=== PATIENT | female | born 1965 | race Caucasian/White ===

== ENCOUNTER → 2016-09-12 | Outpatient (CLI) | payer BC ==
--- NOTE | 2016-09-12 15:19 | REP ---
RIGHT HIP, TWO VIEWS: HISTORY: Pain. There is no acute fracture or dislocation. The joint space is normal in appearance. IMPRESSION: There is no acute fracture or dislocation.
== END ==
LOC: M CLY 14:02
PROVIDERS: ATTEND Nurse Practitioner
DX: M25.551 Pain in right hip (principal)

== ENCOUNTER → 2016-09-15 | Outpatient (CLI) | payer BC, OTHER ==
--- NOTE | 2016-09-15 12:41 | REPMRS ---
Patient History The patient states she had a clinical breast exam in 2016. No known family history of cancer. Digital Mammo Screening Bilat: September 15, 2016 - Exam #: [id number] Bilateral CC and MLO view(s) were taken. Technologist: Sheryl Roque Technologist Prior study comparison: September 08, 2015, bilateral digital mammo screening bilat performed at [facility]. October 14, 2012, bilateral digital mammo screening bilat performed at [facility]. October 11, 2011, bilateral digital mammo screening bilat performed at [facility]. FINDINGS: There are scattered fibroglandular densities. There has been no change in the appearance of the mammogram from the prior studies. There is a mild amount of scattered fibroglandular density which is fairly symmetric. There is no interval development of dominant mass, architectural distortion, or clustered microcalcification suggestive of malignancy. ASSESSMENT: BI-RADS/ACR category 1 mammogram. Negative. Recommendation Routine screening mammogram in 1 year (for women over age 40). This mammogram was interpreted with the aid of an FDA-approved computer-aided dectection system. Electronically Signed By: Shree Plummer MD 09/15/16 [id number]
== END ==
LOC: M RAD 10:10
PROVIDERS: ATTEND Obstetrics & Gynecology
DX: Z12.39 Encounter for other screening for malignant neoplasm of breast (principal)

== ENCOUNTER → 2016-10-24 | Outpatient (CLI) | payer BC ==
[~2016-10-24] MED LIST: CONRAY-43 43% 50ML VIAL (Q9960) As Ordered ONE; LIDOCAINE 1% MDV 20ML VIAL As Ordered ONE; methylPREDNISolone SUSP 40 MG/ML (DEPO-medrol) VIAL (J1030) As Ordered ONE
--- NOTE | 2016-10-24 17:43 | REP ---
RIGHT HIP INJECTION: The procedure was performed under the direct supervision of Dr. Granda. The benefits and risks including, but not limited to pain, infection, bleeding, and anaphylaxis were explained to the patient and informed consent was obtained. The right femoral neck was localized using fluoroscopic guidance. The skin was prepped and draped in a sterile fashion. 1% lidocaine was used as a local anesthetic. Using fluoroscopic guidance a 22-gauge spinal needle was inserted and advanced to the femoral neck. 0.5 mL of Conray-43 was injected to verify placement. 5 mL of a solution containing 3 mL of 1% Lidocaine and 2 mL of Depo-Medrol 40 mg was injected. The needle was then removed. The patient tolerated the procedure well and there were no immediate complications. 1 second of fluoroscopy time was utilized for this procedure. Reviewed by NORBERTO Haque 10/25/2016 08:32 AEdited and Signed by Donald Plummer MD 10/25/2016 02:44 P
== END | disposition home or self-care (01) ==
LOC: M RADPRO 10:07
PROVIDERS: ATTEND Orthopaedic Surgery
DX: M25.551 Pain in right hip (principal)
CPT/HCPCS: 20610; 77002; J1030; Q9960

== ENCOUNTER → 2017-03-13 | Outpatient (CLI) | payer BC, OTHER ==
--- NOTE | 2017-03-13 14:55 | REP ---
CERVICAL SPINE SERIES: Full cervical spine series performed. Nine views were obtained. There is no compression fracture. There is no malalignment with normal cervical lordosis. There is no prevertebral soft tissue swelling. There is mild spurring and disc space narrowing at C5-6 and C6-7. There is diffuse sclerosis with mild narrowing and spurring at the posterior facet joints. Uncovertebral spurring may cause mild bilateral foraminal narrowing at C5-6. IMPRESSION: Degenerative changes as above, primarily at C5-6 and C6-7 with possible mild bilateral foraminal narrowing at C5-6. Further evaluation may be made with MRI of the cervical spine.
== END ==
LOC: M CLY 13:44
PROVIDERS: ATTEND Nurse Practitioner
DX: R20.2 Paresthesia of skin (principal)

== ENCOUNTER → 2017-03-13 | Outpatient (REF) | payer OTHER ==
[2017-03-13 16:57] LABS: ALBUMIN/GLOBULIN RATIO 1.25 (1.00-1.93); ALKALINE PHOSPHATASE 62 U/L (45-117); ALT/SGPT 23 U/L (12-78); ANION GAP 8 MEQ/L (8-16); AST/SGOT 15 U/L (15-37); BILIRUBIN,TOTAL 1.1 MG/DL (0.2-1.0); BLOOD UREA NITROGEN 15 MG/DL (7-18); CALCIUM LEVEL 9.2 MG/DL (8.5-10.1); CARBON DIOXIDE LEVEL 27 MEQ/L (21-32); CHLORIDE LEVEL 103 MEQ/L (98-107); GLOMERULAR FILTRATION RATE > 60.0 (>58); GLUCOSE, FASTING 87 MG/DL (70-105); POTASSIUM SERUM 4.1 MEQ/L (3.5-5.1); SODIUM LEVEL 138 MEQ/L (136-145); TOTAL PROTEIN 7.2 GM/DL (6.4-8.2)
== END ==
LOC: M SFHCCLAY 13:20
PROVIDERS: ATTEND Nurse Practitioner
DX: E03.9 Hypothyroidism, unspecified (principal)

== ENCOUNTER → 2017-09-20 | Outpatient (CLI) | payer BC, OTHER | LOC: M RAD 09:46 | DX: Z12.31 Encounter for screening mammogram for malignant neoplasm of breast (principal) | CPT/HCPCS: 77067 ==

== ENCOUNTER → 2017-12-23 | Outpatient (CLI) | payer BC, OTHER ==
[2017-12-23 17:22] LABS: BASO % 0.6 % (0.0-1.0); EOS # 0.1 10^3/uL (0.0-0.50); EOS % 1.8 % (0.0-3.0); HEMATOCRIT 39.9 % (36.0-47.0); HEMOGLOBIN 13.9 g/dl (12.0-15.5); IMMATURE GRANULOCYTE % 0.3 % (0-3.0); LYMPH # 1.8 10^3/uL (1.5-4.5); LYMPH % 25.9 % (24.0-44.0); MEAN CORPUSCULAR HEMOGLOBIN 32.8 pg (27.0-33.0); MEAN CORPUSCULAR HGB CONC 34.8 g/dl (32.0-36.5); MEAN CORPUSCULAR VOLUME 94.1 fl (80.0-96.0); MONO # 0.8 10^3/uL (0.0-0.8); MONO % 11.3 % (0.0-5.0); NEUTROPHILS # 4.1 10^3/uL (1.8-7.7); NEUTROPHILS % 60.1 % (36.0-66.0); PLATELET COUNT, AUTOMATED 264 10^3/uL (150-450); RED BLOOD COUNT 4.24 10^6/uL (4.00-5.40); WHITE BLOOD COUNT 6.8 10^3/uL (4.0-10.0)
[2017-12-23 17:42] LABS: ALBUMIN 3.8 GM/DL (3.2-5.2); ALBUMIN/GLOBULIN RATIO 1.06 (1.00-1.93); ALKALINE PHOSPHATASE 87 U/L (45-117); ALT/SGPT 28 U/L (12-78); ANION GAP 6 MEQ/L (8-16); AST/SGOT 27 U/L (7-37); BLOOD UREA NITROGEN 9 MG/DL (7-18); CALCIUM LEVEL 8.5 MG/DL (8.5-10.1); CARBON DIOXIDE LEVEL 26 MEQ/L (21-32); CHLORIDE LEVEL 110 MEQ/L (98-107); GLOMERULAR FILTRATION RATE > 60.0 (>51); GLUCOSE, FASTING 90 MG/DL (70-100); POTASSIUM SERUM 3.8 MEQ/L (3.5-5.1); SODIUM LEVEL 142 MEQ/L (136-145); TOTAL PROTEIN 7.4 GM/DL (6.4-8.2)
== END ==
LOC: M LAB 17:08
DX: R10.30 Lower abdominal pain, unspecified (principal)
CPT/HCPCS: 80053

== ENCOUNTER → 2018-02-25 | Outpatient (REF) | payer OTHER ==
[2018-02-25 20:21] LABS: VITAMIN B12 LEVEL 1507 PG/ML (247-911)
[2018-02-25 20:22] LABS: ALBUMIN 3.7 GM/DL (3.2-5.2); ALBUMIN/GLOBULIN RATIO 1.06 (1.00-1.93); ALKALINE PHOSPHATASE 73 U/L (45-117); ALT/SGPT 30 U/L (12-78); ANION GAP 9 MEQ/L (8-16); AST/SGOT 15 U/L (7-37); BILIRUBIN,TOTAL 1.5 MG/DL (0.2-1.0); BLOOD UREA NITROGEN 14 MG/DL (7-18); CARBON DIOXIDE LEVEL 27 MEQ/L (21-32); CHLORIDE LEVEL 106 MEQ/L (98-107); CHOLESTEROL LEVEL 191 MG/DL (<200); CREATININE FOR GFR 0.81 MG/DL (0.55-1.30); FERRITIN 54 NG/ML (8-252); FREE T4 1.25 NG/DL (0.76-1.46); GLOMERULAR FILTRATION RATE > 60.0 (>51); GLUCOSE, FASTING 71 MG/DL (70-100); HDL CHOLESTEROL 62 MG/DL (>40); LDL CHOLESTEROL 102.2 MG/DL (<100); NON-HDL-C 129 MG/DL; POTASSIUM SERUM 3.9 MEQ/L (3.5-5.1); SODIUM LEVEL 142 MEQ/L (136-145); THYROID STIMULATING HORMONE 0.113 uIU/ML (0.358-3.740); TOTAL PROTEIN 7.2 GM/DL (6.4-8.2); TRIGLYCERIDES LEVEL 134 MG/DL (<150)
== END ==
LOC: M SFHCCLAY 09:27
DX: E78.2 Mixed hyperlipidemia (principal); Z98.84 Bariatric surgery status; E03.9 Hypothyroidism, unspecified

== ENCOUNTER → 2018-04-04 | Outpatient (REF) | payer OTHER ==
[2018-04-04 14:35] LABS: FREE T4 1.03 NG/DL (0.76-1.46)
== END ==
LOC: M SFHCCLAY 08:48
DX: E03.9 Hypothyroidism, unspecified (principal)

== ENCOUNTER → 2018-09-25 | Outpatient (CLI) | payer BC, OTHER ==
--- NOTE | 2018-09-25 12:09 | REPMRS ---
Patient History The patient states she had a clinical breast exam in 2018. No known family history of cancer. 3D TOMOSYNTHESIS WAS PERFORMED. Digital Mammo Screening Bilat: September 25, 2018 - Exam #: [id number] Bilateral CC and MLO view(s) were taken. Technologist: Sheryl Roque, Technologist Prior study comparison: September 20, 2017, bilateral digital mammo screening bilat performed at [facility]. September 15, 2016, bilateral digital mammo screening bilat performed at [facility]. FINDINGS: There are scattered fibroglandular densities. There has been no change in the appearance of the mammogram from the prior studies. There is a mild amount of residual fibroglandular tissue which is fairly symmetric. There is no interval development of dominant mass, architectural distortion, or clustered microcalcification suggestive of malignancy. Assessment: BI-RADS/ACR category 1 mammogram. Negative Mammogram. Recommendation Routine screening mammogram in 1 year (for women over age 40). This mammogram was interpreted with the aid of an FDA-approved computer-aided dectection system. Electronically Signed By: Ilia Granda MD 09/25/18 [id number]
== END ==
LOC: M RAD 11:23
PROVIDERS: ATTEND Obstetrics & Gynecology
DX: Z12.31 Encounter for screening mammogram for malignant neoplasm of breast (principal)

== ENCOUNTER → 2019-02-28 | Outpatient (REF) | payer OTHER ==
[2019-02-28 11:50] LABS: BASO # 0.1 10^3/uL (0.0-0.2); EOS # 0.1 10^3/uL (0.0-0.50); EOS % 2.4 % (0.0-3.0); HEMATOCRIT 41.5 % (36.0-47.0); HEMOGLOBIN 13.7 g/dl (12.0-15.5); LYMPH # 1.6 10^3/uL (1.5-4.5); LYMPH % 26.5 % (24.0-44.0); MEAN CORPUSCULAR HEMOGLOBIN 32.1 pg (27.0-33.0); MEAN CORPUSCULAR VOLUME 97.2 fl (80.0-96.0); MONO # 0.5 10^3/uL (0.0-0.8); MONO % 8.2 % (0.0-5.0); NEUTROPHILS # 3.6 10^3/uL (1.8-7.7); NEUTROPHILS % 61.7 % (36.0-66.0); PLATELET COUNT, AUTOMATED 268 10^3/uL (150-450); RED BLOOD COUNT 4.27 10^6/uL (4.00-5.40); WHITE BLOOD COUNT 5.9 10^3/uL (4.0-10.0)
[2019-02-28 12:32] LABS: ALBUMIN 3.8 GM/DL (3.2-5.2); ALT/SGPT 28 U/L (12-78); BILIRUBIN,TOTAL 0.8 MG/DL (0.2-1.0); BLOOD UREA NITROGEN 15 MG/DL (7-18); CARBON DIOXIDE LEVEL 26 MEQ/L (21-32); CHLORIDE LEVEL 106 MEQ/L (98-107); CHOLESTEROL LEVEL 192 MG/DL (<200); CHOLESTEROL RISK RATIO 3.147 (<5); CREATININE FOR GFR 0.84 MG/DL (0.55-1.30); FERRITIN 48 NG/ML (8-252); FREE T4 1.13 NG/DL (0.76-1.46); GLOMERULAR FILTRATION RATE > 60.0 (>51); GLUCOSE, FASTING 85 MG/DL (70-100); HDL CHOLESTEROL 61 MG/DL (>40); LDL CHOLESTEROL 111 MG/DL (<100); NON-HDL-C 131 MG/DL; POTASSIUM SERUM 4.4 MEQ/L (3.5-5.1); SODIUM LEVEL 140 MEQ/L (136-145); TOTAL 25(OH) VITAMIN D 33.9 NG/ML (30.0-100.0); TOTAL PROTEIN 7.2 GM/DL (6.4-8.2); TRIGLYCERIDES LEVEL 98 MG/DL (<150); VITAMIN B12 LEVEL > 2000 PG/ML (247-911)
== END ==
LOC: M SFHCCLAY 08:33
PROVIDERS: ATTEND Nurse Practitioner Family
DX: E03.9 Hypothyroidism, unspecified (principal); Z98.84 Bariatric surgery status; E78.2 Mixed hyperlipidemia

== ENCOUNTER → 2019-06-11 | Outpatient (REF) | payer OTHER ==
[2019-06-11 12:07] LABS: C REACTIVE PROTEIN QUANTITATIV < 0.30 MG/DL (0.00-0.30); RHEUMATOID FACTOR QUANT < 10.0 IU/ML (<15.0); URIC ACID 3.6 MG/DL (2.6-6.0)
[2019-06-11 12:11] LABS: BASO # 0.1 10^3/uL (0.0-0.2); BASO % 1.5 % (0.0-1.0); EOS # 0.2 10^3/uL (0.0-0.5); EOS % 2.6 % (0.0-3.0); HEMATOCRIT 41.7 % (36.0-47.0); HEMOGLOBIN 13.8 g/dl (12.0-15.5); LYMPH # 1.4 10^3/uL (1.5-5.0); LYMPH % 20.8 % (24.0-44.0); MEAN CORPUSCULAR HEMOGLOBIN 33.2 pg (27.0-33.0); MEAN CORPUSCULAR HGB CONC 33.1 g/dl (32.0-36.5); MEAN CORPUSCULAR VOLUME 100.2 fl (80.0-96.0); MONO # 0.5 10^3/uL (0.0-0.8); MONO % 7.5 % (0.0-5.0); NEUTROPHILS # 4.4 10^3/uL (1.5-8.5); NEUTROPHILS % 67.3 % (36.0-66.0); PLATELET COUNT, AUTOMATED 278 10^3/uL (150-450); RED BLOOD COUNT 4.16 10^6/uL (4.00-5.40); WHITE BLOOD COUNT 6.5 10^3/uL (4.0-10.0)
[2019-06-11 13:29] LABS: ERYTHROCYTE SEDIMENTATION RATE 13 mm/hr (0-30)
== END ==
LOC: M LABDRAW1 10:08
PROVIDERS: ATTEND Physician Assistant Surgical
DX: M47.27 Other spondylosis with radiculopathy, lumbosacral region (principal)

== ENCOUNTER → 2019-07-02 | Outpatient (CLI) | payer BC, OTHER ==
[~2019-07-02] MED LIST changes: +CETI10CH PO; +CHOL100029 PO; -CONRAY-43 43% 50ML VIAL (Q9960) As Ordered ONE; +HORMONE; +LEVO125T4 PO; -LIDOCAINE 1% MDV 20ML VIAL As Ordered ONE; +MULTCAP PO; +VALA500T5 PO; -methylPREDNISolone SUSP 40 MG/ML (DEPO-medrol) VIAL (J1030) As Ordered ONE
--- NOTE | 2019-07-02 12:16 | REP ---
MRI lumbar spine: 07/02/2019. Indication: Lumbar radiculopathy. Comparison: None. Technique: Multiplanar short and long TR sequences of the lumbar spine were obtained without IV Gadolinium. There is minimal retrolisthesis of L1 on L2 and L2 and L3. Linear signal abnormalities are noted through the L1, L2 and L3 vertebral bodies consistent with remote fractures without significant loss of craniocaudal height or retropulsion of fracture fragments into the spinal canal. There is an interosseous hemangioma noted within the left aspect of L4. Small hemangioma is noted within the L1 vertebral body. There is levoscoliosis of the lumbar spine centered at L3/L4. The visualized spinal cord is unremarkable. Disc desiccation and disc space narrowing are present throughout. No acute paraspinal soft tissue abnormalities are present. L1/L2: Diffuse disc and spur complex and bilateral facet arthropathy are present with mild spinal canal and neural foraminal narrowing. L2/L3: Diffuse disc and spur complex and bilateral facet arthropathy are present with mild spinal canal narrowing. There is moderate left and mild right neural foraminal narrowing. L3/L4: Diffuse disc and spur complex is present with bilateral facet arthropathy. There is moderate to severe right and mild left recess narrowing. Mild bilateral neural foraminal narrowing is present. L4/L5: Diffuse disc and spur complex is present with significant bilateral facet arthropathy. There is moderate to severe left and moderate right recess narrowing. Moderate bilateral neural foraminal narrowing is present. L5/S1: Significant bilateral facet arthropathy is present with an asymmetric disc and spur complex more apparent on the right with a suspected superimposed far left lateral disc protrusion which contacts the exiting left L5 nerve root. Mild bilateral recess and right neural foraminal narrowing is present. Impression: Chronic vertebral body fractures and multilevel spondylosis as described. Spondylolisthesis and interosseous hemangioma is as described. Please correlate with radicular level. Electronically Signed by Cam Sandoval DO 07/02/2019 12:09 P
== END ==
LOC: M RAD 08:38
PROVIDERS: ATTEND Physician Assistant Surgical
DX: M47.27 Other spondylosis with radiculopathy, lumbosacral region (principal)

== ENCOUNTER 2019-07-18 07:53 | Day surgery (SDC) | payer BC, OTHER ==
[~2019-07-18] VITALS: Ht 160 cm; Wt 87.9 kg
[~2019-07-18 07:53] MED LIST changes: +NS 1,000 ML IV ONE
[2019-07-18] MEDS ORDERED: LIDOCAINE 2% INJ 100 MG/5 ML SDV (FOR ANES.) As Ordered ONE (08:14)
[2019-07-18] MEDS ORDERED: PROPOFOL 200 MG/20 ML VIAL As Ordered ONE (08:14)
--- NOTE | 2019-07-18 09:19 | ROOR ---
Patient Name: Kacey Clemente Procedure Date: 07/18/2019 8:40 AM Date of : 1965 Age: 53 Room: [facility] Gender: Female Note Status: Finalized Procedure: Colonoscopy Indications: Screening for colorectal malignant neoplasm Providers: Dashawn Aponte MD Referring MD: Karie Thao NP Requesting Provider: Medicines: Monitored Anesthesia Care Complications: No immediate complications. Procedure: Pre-Anesthesia Assessment: - Prior to the procedure, a History and Physical was performed, and patient medications and allergies were reviewed. The patient is competent. The risks and benefits of the procedure and the sedation options and risks were discussed with the patient. All questions were answered and informed consent was obtained. Patient identification and proposed procedure were verified by the physician, the nurse and the anesthesiologist in the procedure room. Mental Status Examination: alert and oriented. Airway Examination: normal oropharyngeal airway and neck mobility. Respiratory Examination: clear to auscultation. CV Examination: normal. Prophylactic Antibiotics: The patient does not require prophylactic antibiotics. Prior Anticoagulants: The patient has taken no previous anticoagulant or antiplatelet agents. ASA Grade Assessment: II - A patient with mild systemic disease. After reviewing the risks and benefits, the patient was deemed in satisfactory condition to undergo the procedure. The anesthesia plan was to use monitored anesthesia care (MAC). Immediately prior to administration of medications, the patient was re-assessed for adequacy to receive sedatives. The heart rate, respiratory rate, oxygen saturations, blood pressure, adequacy of pulmonary ventilation, and response to care were monitored throughout the procedure. The physical status of the patient was re-assessed after the procedure. The colonoscopy was performed without difficulty. The patient tolerated the procedure well. The quality of the bowel preparation was good. The terminal ileum, ileocecal valve, appendiceal orifice, and rectum were photographed. Scope insertion time was 3 minutes. Scope withdrawal time was 9 minutes. The total duration of the procedure was 12 minutes. The Colonoscope was introduced through the anus and advanced to the terminal ileum, with identification of the appendiceal orifice and IC valve. Findings: The perianal and digital rectal examinations were normal. The terminal ileum appeared normal. A 12 mm polyp was found in the ascending colon. The polyp was sessile. The polyp was removed with a cold snare. Resection and retrieval were complete. Verification of patient identification for the specimen was done by the physician and nurse using the patient's name, date and medical record number. Estimated blood loss was minimal. To close a defect after polypectomy, one hemostatic clip was successfully placed. There was no bleeding at the end of the procedure. Three sessile polyps were found in the recto-sigmoid colon. The polyps were 4 to 6 mm in size. These polyps were removed with a cold snare. Resection and retrieval were complete. Multiple small and large-mouthed diverticula were found from sigmoid to transverse colon. There was no evidence of diverticular bleeding. Non-bleeding external and internal hemorrhoids were found during retroflexion. The hemorrhoids were medium-sized. Impression: - The examined portion of the ileum was normal. - One 12 mm polyp in the ascending colon, removed with a cold snare. Resected and retrieved. Clip was placed. - Three 4 to 6 mm polyps at the recto-sigmoid colon, removed with a cold snare. Resected and retrieved. - Moderate diverticulosis from sigmoid to transverse colon. There was no evidence of diverticular bleeding. - Non-bleeding external and internal hemorrhoids. Recommendation: - Patient has a contact number available for emergencies. The signs and symptoms of potential delayed complications were discussed with the patient. Return to normal activities tomorrow. Written discharge instructions were provided to the patient. - High fiber diet. - Continue present medications. - Await pathology results. - Repeat colonoscopy in 3 - 5 years for surveillance based on pathology results. - Telephone GI clinic for pathology results in 2 weeks. - Return to primary care physician. Dashawn Aponte MD Dashawn Aponte MD 07/18/2019 9:19:11 AM Electronically signed by Dashawn Aponte MD Number of Addenda: 0 Note Initiated On: 07/18/2019 8:09 AM Estimated Blood Loss: Estimated blood loss was minimal.
[2019-07-18 09:40] VITALS: BP 106/72
== END 2019-07-18 09:52 | disposition home or self-care (01) ==
LOC: M OPP 07:53
PROVIDERS: ATTEND Internal Medicine Gastroenterology
DX: Z12.11 Encounter for screening for malignant neoplasm of colon (principal); Z80.0 Family history of malignant neoplasm of digestive organs; K64.8 Other hemorrhoids; D12.2 Benign neoplasm of ascending colon; D12.7 Benign neoplasm of rectosigmoid junction; K57.30 Diverticulosis of large intestine without perforation or abscess without bleeding; Z79.899 Other long term (current) drug therapy; Z88.1 Allergy status to other antibiotic agents; Z87.891 Personal history of nicotine dependence

== ENCOUNTER → 2019-09-26 | Outpatient (CLI) | payer BC, OTHER ==
[~2019-09-26] MED LIST changes: -NS 1,000 ML IV ONE
--- NOTE | 2019-09-26 12:14 | REP ---
BILATERAL MAMMOGRAM WITH 3D TOMOSYNTHESIS AND RIGHT BREAST ULTRASOUND: CLINICAL HISTORY: Right nipple discharge, greenish in color. No family history of breast cancer. Tyrer-Cuzick lifetime risk of breast cancer 10.1%. Comparison 09/25/2018 as well as other prior exams. MLO and CC views of both breasts performed with 3D tomosynthesis. Mild scattered fibroglandular tissue appears unchanged when compared to prior studies. I seen no mass, architectural distortion or clustered microcalcifications. Real-time sonographic evaluation of the right retroareolar region performed due to the greenish nipple charge. Mildly dilated duct is seen in the right retroareolar region. No solid nodule is seen. IMPRESSION: BIRADS 2: BI-RADS/ACR category 2 mammogram. Benign Findings. ACR 2 benign. No mass or clustered microcalcifications. Sonographically in the right retroareolar region a mildly dilated duct is seen without evidence of solid nodule sonographically. There is a history of right nipple discharge, which is green in color. Bloody discharge would be considered a suspicious finding. However, if further imaging is desired, then MRI of the breasts would be recommended. This mammogram was interpreted with the aid of an FDA-approved computer-aided detection system. A. Negative x-ray reports should not delay biopsy if a dominant or clinically suspicious mass is present. B. Four to eight percent of cancers are not identified by x-ray. C. Adenosis and dense breasts may obscure an underlying neoplasm. The patient states she/he had a clinical breast exam in August 2019. The patient letter being requested is M2 Electronically Signed by Ilia Granda MD 09/26/2019 12:58 P
== END ==
LOC: M RAD 09:44
PROVIDERS: ATTEND Obstetrics & Gynecology
DX: N64.52 Nipple discharge (principal)
CPT/HCPCS: 76642; 77066; G0279

== ENCOUNTER → 2019-10-03 | Outpatient (CLI) | payer BC, OTHER | LOC: M PLALAB 10:39 | PROVIDERS: ATTEND Surgery | DX: Z13.9 Encounter for screening, unspecified (principal) ==

== ENCOUNTER → 2020-03-03 | Outpatient (REF) | payer OTHER ==
[2020-03-03 11:42] LABS: BASO # 0.1 10^3/uL (0.0-0.2); BASO % 0.9 % (0.0-1.0); EOS # 0.1 10^3/uL (0.0-0.5); HEMATOCRIT 42.3 % (36.0-47.0); HEMOGLOBIN 14.1 g/dl (12.0-15.5); LYMPH # 1.3 10^3/uL (1.5-5.0); LYMPH % 24.1 % (24.0-44.0); MEAN CORPUSCULAR HGB CONC 33.3 g/dl (32.0-36.5); MEAN CORPUSCULAR VOLUME 95.9 fl (80.0-96.0); MONO # 0.4 10^3/uL (0.0-0.8); MONO % 7.7 % (0.0-5.0); NEUTROPHILS # 3.6 10^3/uL (1.5-8.5); NEUTROPHILS % 64.9 % (36.0-66.0); PLATELET COUNT, AUTOMATED 252 10^3/uL (150-450); RED BLOOD COUNT 4.41 10^6/uL (4.00-5.40); WHITE BLOOD COUNT 5.6 10^3/uL (4.0-10.0)
[2020-03-03 12:21] LABS: ALBUMIN 3.7 GM/DL (3.2-5.2); ALT/SGPT 29 U/L (12-78); BILIRUBIN,TOTAL 1.1 MG/DL (0.2-1.0); BLOOD UREA NITROGEN 12 MG/DL (7-18); CARBON DIOXIDE LEVEL 25 MEQ/L (21-32); CHLORIDE LEVEL 107 MEQ/L (98-107); CHOLESTEROL LEVEL 226 MG/DL (<200); CHOLESTEROL RISK RATIO 3.704 (<5); CREATININE FOR GFR 0.74 MG/DL (0.55-1.30); FERRITIN 86 NG/ML (8-252); FREE T4 1.27 NG/DL (0.76-1.46); GLOMERULAR FILTRATION RATE > 60.0 (>51); GLUCOSE, FASTING 81 MG/DL (70-100); HDL CHOLESTEROL 61 MG/DL (>40); LDL CHOLESTEROL 146 MG/DL (<100); NON-HDL-C 165 MG/DL; POTASSIUM SERUM 4.3 MEQ/L (3.5-5.1); SODIUM LEVEL 139 MEQ/L (136-145); THYROID STIMULATING HORMONE 0.266 uIU/ML (0.358-3.740); TOTAL 25(OH) VITAMIN D 38.4 NG/ML (30.0-100.0); TOTAL PROTEIN 7.1 GM/DL (6.4-8.2); TRIGLYCERIDES LEVEL 96 MG/DL (<150); VITAMIN B12 LEVEL 1169 PG/ML (247-911)
== END ==
LOC: M SFHCCLAY 09:15
PROVIDERS: ATTEND Nurse Practitioner Family
DX: E78.2 Mixed hyperlipidemia (principal); E03.9 Hypothyroidism, unspecified; Z98.84 Bariatric surgery status; K29.70 Gastritis, unspecified, without bleeding; R89.4 Abnormal immunological findings in specimens from other organs, systems and tissues; Z12.11 Encounter for screening for malignant neoplasm of colon

== ENCOUNTER → 2020-06-30 | Outpatient (CLI) | payer BC, OTHER ==
--- NOTE | 2020-06-30 16:47 | REP ---
INDICATION: PAIN IN LEG MAIN REG COMPARISON: None. TECHNIQUE: Real time granda scale and Duplex Doppler evaluation of the bilateral lower extremity arterial vasculature using linear high frequency transducer. FINDINGS: Granda scale and duplex doppler images demonstrate diffuse triphasic waveforms in the bilateral lower extremity arterial systems. KAILASH on the right as well as on the left is 1.1. There is no evidence of hemodynamically significant stenosis of the arterial structures of either lower extremity. Note is made of a complex cystic structure measuring 6.3 x 5.9 x 3.0 cm in the left groin. There is history of a drain placement post surgically in 2013 at this location. This probably represents a chronic seroma. Peak systolic velocities (cm/sec) Common femoral artery: Right 94; Left 95 Profunda femoris: Right 76; Left 42 SFA (proximal): Right 111; Left 122 SFA (mid): Right 121; Left 108 SFA (distal): Right 101; Left 98 Popliteal artery: Right 57; Left 65 AINSLEY (prox.): Right 52; Left 54 Tibioperoneal trunk: Right 64; Left 71 [employer]CTION SYSTEMS [employer]ANT (prox.): Right 84; Left 66 [employer]LECTION SYSTEMS CONSULTANT (distal): Right 119; Left 114 AINSLEY (distal): Right 107; Left 84 IMPRESSION: Atheromatous changes with areas of narrowing but no obvious focal occlusion or stenosis. <Electronically signed by Ilia Granda > 06/30/20 [id number]
== END ==
LOC: M RAD 13:22
PROVIDERS: ATTEND Physician Assistant
DX: I83.813 Varicose veins of bilateral lower extremities with pain (principal); M79.606 Pain in leg, unspecified

== ENCOUNTER → 2020-07-05 | Outpatient (CLI) | payer BC, OTHER ==
--- NOTE | 2020-07-06 07:07 | REP ---
INDICATION: PAIN IN LEG, BLE VARICOSE VEINS W/ PAIN COMPARISON: Bilateral lower extremity pain TECHNIQUE: Granda scale and color Doppler evaluation of the bilateral lower extremities using linear high frequency transducer. FINDINGS: Ultrasound examination of the right and left lower extremity deep venous structures from the common femoral vein to the popliteal vein demonstrates normal compressibility flow and wave patterns in response to respiration and augmentation. There is no evidence for deep venous thrombosis. There is a complex fluid collection adjacent to the right femoral head measuring 6.6 x 2.3 x 3.4 cm which requires further investigation. Right lower extremity demonstrates no evidence for reflux. Left lower extremity demonstrates reflux in the common femoral vein as well as the greater saphenous vein proximally measuring 9.8 mm diameter with reflux duration 8.3 seconds, mid level measuring 7.6 mm diameter with reflux duration 6.7 seconds, and distally at the knee measuring 7.3 mm diameter with reflux duration 6.8 seconds. IMPRESSION: 1. No evidence for deep venous thrombosis. 2. Complex collection adjacent to the right femoral head warrants further evaluation and may represent joint effusion/synovitis. 3. Mild reflux noted through the left lower extremity as above. <Electronically signed by Samir Duran > 07/06/20 [id number]
== END ==
LOC: M RAD 06:42
PROVIDERS: ATTEND Physician Assistant
DX: I83.813 Varicose veins of bilateral lower extremities with pain (principal)

== ENCOUNTER → 2020-07-16 | Outpatient (CLI) | payer BC, OTHER ==
--- NOTE | 2020-07-16 09:44 | REPVR ---
PROCEDURE INFORMATION: Exam: MR Lumbar Spine Without Contrast. Exam date and time: 07/16/2020 9:24 AM Age: 54 years old Clinical indication: Other: Spondyls w/o myelopathy or radiculopathy. TECHNIQUE: Imaging protocol: Multiplanar magnetic resonance images of the lumbar spine without intravenous contrast. COMPARISON: MRI-Spine, L.S. without con 07/02/2019 8:54 AM FINDINGS: Vertebrae: Unremarkable. Spinal cord: Normal signal. No cord compression. T12-L1: There is disc space narrowing and desiccation. There are moderate degenerative end plate changes at this level. There is a moderate disc bulge with a small superimposed central disc herniation. There is mild spinal canal stenosis. There is moderate bilateral neural foraminal narrowing. L1-L2: There is disc space narrowing and desiccation. There are moderate degenerative end plate changes at this level. There is a moderate disc/osteophyte complex that flattens the ventral thecal sac. There is facet arthropathy and ligamentum flavum hypertrophy. There is moderate bilateral neural foraminal narrowing. There is mild spinal canal stenosis. L2-L3: There is minimal retrolisthesis at L2/3. There is effacement of the intervertebral disc at this level. There is disc space narrowing and desiccation. There are moderate degenerative end plate changes at this level. There is a moderate disc/osteophyte complex that flattens the ventral thecal sac. There is moderate bilateral neural foraminal narrowing. There is exuberant bilateral facet arthropathy and ligamentum flavum hypertrophy. There is moderate spinal canal stenosis. L3-L4: There is disc space narrowing and desiccation. There are moderate degenerative end plate changes at this level. There is a moderate disc/osteophyte complex that flattens the ventral thecal sac. There is a superimposed right foraminal disc herniation. There is moderate bilateral neural foraminal narrowing, right worse than left. There is exuberant bilateral facet arthropathy and ligamentum flavum hypertrophy. There is mild/moderate spinal canal stenosis. L4-L5: There is disc space narrowing and desiccation. There are moderate degenerative end plate changes at this level. There is a moderate disc/osteophyte complex that flattens the ventral thecal sac. There is a moderate broad-based central disc protrusion. There is moderate/severe bilateral neural foraminal narrowing. There is exuberant bilateral facet arthropathy and ligamentum flavum hypertrophy. There is moderate/severe spinal canal stenosis. At L5-S1: There is disc space narrowing and desiccation. There are moderate degenerative end plate changes at this level. There is a moderate disc/osteophyte complex that flattens the ventral thecal sac. There is moderate disc bulging. There is a superimposed left foraminal disc herniation. There is moderate/severe bilateral neural foraminal narrowing, left worse than right. There is exuberant bilateral facet arthropathy and ligamentum flavum hypertrophy. There is moderate spinal canal stenosis. There is what likely represents a hemangioma in the L4 vertebra. Soft tissues: Unremarkable. IMPRESSION: Advanced multilevel degenerative changes causing variable degrees of spinal canal and neuroforaminal narrowing as described above. Electronically signed by: Andrew Shoemaker On 07/16/2020 09:44:08 AM
== END ==
LOC: M RAD 08:06
PROVIDERS: ATTEND Physician Assistant
DX: M47.817 Spondylosis without myelopathy or radiculopathy, lumbosacral region (principal); M51.37 Other intervertebral disc degeneration, lumbosacral region

== ENCOUNTER → 2020-08-25 | Outpatient (CLI) | payer BC, OTHER ==
[2020-08-25 13:17] LABS: PLATELET COUNT, AUTOMATED 272 10^3/uL (150-450)
[2020-08-25 13:31] LABS: PARTIAL THROMBOPLASTIN TIME 30.6 SECONDS (24.2-38.5)
[2020-08-25 13:41] LABS: INR 0.97; PROTHROMBIN TIME 13.1 SECONDS (12.5-14.3)
== END ==
LOC: M PLALAB 10:33
PROVIDERS: ATTEND Physician Assistant
DX: M43.16 Spondylolisthesis, lumbar region (principal)

== ENCOUNTER → 2020-08-25 | Outpatient (CLI) | payer BC, OTHER | LOC: M LABSMTC 11:00 | PROVIDERS: ATTEND Physician Assistant | DX: Z01.812 Encounter for preprocedural laboratory examination (principal); Z20.828 Contact with and (suspected) exposure to other viral communicable diseases ==

== ENCOUNTER → 2021-02-18 | Outpatient (CLI) | payer BC ==
[~2021-02-18] MED LIST changes: +DULO1CAP5; +OMEP-218; +PREG100C
--- NOTE | 2021-02-18 10:52 | REPMRS ---
Patient History The patient states she had a clinical breast exam in January 2021. Family history of colorectal cancer in father. Taking estrogen for 3 years. Taking progesterone for 3 years. Taking unspecified hormones for 20 years. 15lb unintentional weight gain Patient states no breast complaints today. Patient has signed MRS History Sheet. Digital Woman Screen Mammo: February 18, 2021 - Exam #: [id number] Bilateral CC and MLO view(s) were taken. Technologist: RT Rosana Prior study comparison: September 26, 2019, digital mammo diagnostic bilateral, performed at [facility]. September 25, 2018, bilateral digital mammo screening bilat, performed at [facility]. September 20, 2017, bilateral digital mammo screening bilat, performed at [facility]. FINDINGS: There are scattered fibroglandular densities. The Volpara volumetric breast density category is:B. There has been no change in the appearance of the mammogram from the prior studies. There is a mild amount of scattered fibroglandular density which is fairly symmetric. There is no interval development of dominant mass, architectural distortion, or grouped microcalcification suggestive of malignancy. 3-D tomosynthesis shows no additional findings. Assessment: BI-RADS/ACR category 1 mammogram. Negative Mammogram. Recommendation Routine screening mammogram of both breasts in 1 year (for women over age 40). This patient's [facility] Lifetime Breast Cancer Risk is estimated at 9.7 %. This mammogram was interpreted with the aid of an FDA-approved computer-aided dectection system. Electronically Signed By: Shree Plummer MD 02/18/21 [id number]
--- NOTE | 2021-02-18 11:34 | DEXAMM ---
INDICATION: Z13.820 SCREENING FOR OSTEOPOROSIS. COMPARISON: None. TECHNIQUE: Bone density was measured using dual-energy x-ray absorptionmetry (DEXA). FINDINGS: AP SPINE L1-L4 BMD 2.318 g/cm2 Young Adult T-Score 8.8 Age Matched Z-Score 9.5. LT FEMUR, TOTAL BMD 1.422 g/cm2 Young Adult T-Score 3.3 Age Matched Z-Score 3.9. LT NECK BMD 1.451 g/cm2 Young Adult T-Score 3.0 Age Matched Z-Score 3.9. RT FEMUR, TOTAL BMD 1.393 g/cm2 Young Adult T-Score 3.1 Age Matched Z-Score 3.6. RT NECK BMD 1.484 g/cm2 Young Adult T-Score 3.2 Age Matched Z-Score 4.1. IMPRESSION: There is elevated bone density of the spine. There is elevated bone density of the left hip. There is elevated bone density of the right hip. FOLLOW-UP: Recommendation for the next bone density exam: 10 years.. <Electronically signed by Shree Plummer > 02/18/21 [id number]
== END ==
LOC: M WHC 09:24
PROVIDERS: ATTEND Obstetrics & Gynecology
DX: Z12.31 Encounter for screening mammogram for malignant neoplasm of breast (principal); Z13.820 Encounter for screening for osteoporosis; Z80.8 Family history of malignant neoplasm of other organs or systems; Z79.890 Hormone replacement therapy; R63.5 Abnormal weight gain

== ENCOUNTER 2021-02-20 17:07 | Emergency (ER) | payer BC ==
[~2021-02-20] VITALS: Ht 157.5 cm; Wt 94.0 kg
[~2021-02-20 17:07] MED LIST changes: -DULO1CAP5; -OMEP-218; -PREG100C
[2021-02-20] MEDS ORDERED: OMEP-218 (17:20)
[2021-02-20] MEDS ORDERED: PREG100C (17:20)
[2021-02-20] MEDS ORDERED: DULO1CAP5 (17:20)
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
[2021-02-20 21:45] VITALS: BP 138/76
--- NOTE | 2021-02-22 12:06 | ED PDOC ---
Post-Departure Follow-Up radiology rpeort faxed to dennis Thao Sarah MD Feb 22, 2021 12:06
== END 2021-02-20 21:59 | disposition home or self-care (01) ==
LOC: M ED 17:07
DX: S01.03XA Puncture wound without foreign body of scalp, initial encounter (principal); W22.8XXA Striking against or struck by other objects, initial encounter; Y92.018 Other place in single-family (private) house as the place of occurrence of the external cause; M54.2 Cervicalgia; Z88.1 Allergy status to other antibiotic agents; Z79.899 Other long term (current) drug therapy; Z79.890 Hormone replacement therapy

== ENCOUNTER → 2021-04-07 | Outpatient (CLI) | payer BC, OTHER ==
[~2021-04-07] MED LIST changes: +DULO1CAP5; +ISOVUE-300 61% 50ML VIAL As Ordered ONE; +LIDOCAINE 1% MDV 20ML VIAL As Ordered ONE; +OMEP-218; +PREG100C; +methylPREDNISolone SUSP 40MG/ML 1ML VIAL (DEPO MEDROL) As Ordered ONE
--- NOTE | 2021-04-07 21:57 | REP ---
INDICATION: LT HIP OA. COMPARISON: None. TECHNIQUE: The procedure was performed under the direct supervision of Dr. Plummer. The benefits and risks including but not limited to pain infection and bleeding and anaphylaxis were explained to the patient and informed consent was obtained. The left femoral neck was localized using fluoroscopic guidance. The skin was prepped and draped in a sterile fashion. 1% lidocaine was used as a local anesthetic. Using fluoroscopic guidance, and last image hold technology, a 22-gauge spinal needle was inserted and advanced to the femoral neck. 0.5 ml of Isovue-300 was injected to verify placement. Seven ml of a solution containing 5 ml of 1% Xylocaine and 2 mL of Depo-Medrol 40 mg was injected. The needle was then removed. The patient tolerated the procedure well and there were no immediate complications. Less than 6 seconds of fluoro time was utilized for this procedure. FINDINGS: None IMPRESSION: Fluoro guidance for left hip injection. <Electronically signed by Blaine Mason > 04/07/21 [id number] <Electronically signed by Shree Plummer > 04/07/21 [id number]
== END ==
LOC: M RADPRO 10:39
PROVIDERS: ATTEND Physician Assistant Surgical
DX: M16.12 Unilateral primary osteoarthritis, left hip (principal)
CPT/HCPCS: 20610; 77002; J1030; Q9967

== ENCOUNTER → 2021-04-14 | Outpatient (REF) | payer OTHER ==
[~2021-04-14] MED LIST changes: -ISOVUE-300 61% 50ML VIAL As Ordered ONE; -LIDOCAINE 1% MDV 20ML VIAL As Ordered ONE; -methylPREDNISolone SUSP 40MG/ML 1ML VIAL (DEPO MEDROL) As Ordered ONE
[2021-04-14 12:11] LABS: FREE T4 1.01 NG/DL (0.76-1.46); THYROID STIMULATING HORMONE 0.61 uIU/ML (0.358-3.740)
== END ==
LOC: M SFHCCLAY 08:50
PROVIDERS: ATTEND Nurse Practitioner Family
DX: E03.9 Hypothyroidism, unspecified (principal)

== ENCOUNTER → 2021-05-08 | Outpatient (CLI) | payer BC, OTHER ==
--- NOTE | 2021-05-08 12:21 | REPVR ---
PROCEDURE INFORMATION: Exam: MR Cervical Spine Without Contrast Exam date and time: 05/08/2021 10:14 AM Age: 55 years old Clinical indication: Neck pain. TECHNIQUE: Imaging protocol: Multiplanar magnetic resonance images of the cervical spine without contrast. COMPARISON: CT Spine,cervical w/o contrast 02/20/2021 7:37 PM FINDINGS: Vertebrae: Unremarkable. Spinal cord: Normal signal. No cord compression. C2-C3: No significant disc disease. No significant spinal stenosis. C3-C4: No significant disc disease. No significant spinal stenosis. C4-C5: There is mild disc bulging. C5-C6: There is disc space narrowing and desiccation. There are moderate degenerative end plate changes at this level. There is a moderate disc/osteophyte complex, partial toward the left, that flattens the ventral thecal sac and compromises the left neural foramen. There is bilateral uncovertebral joint arthropathy, worse on the left. There is a small left subarticular disc protrusion. There is moderate bilateral neural foraminal narrowing, left worse than right. There is mild spinal canal stenosis. C6-C7: There is disc space narrowing and desiccation. There are moderate degenerative end plate changes at this level. There is a moderate disc/osteophyte complex that flattens the ventral thecal sac. There is moderate bilateral uncovertebral joint arthropathy. There is mild/moderate bilateral neuroforaminal narrowing. There is mild spinal canal stenosis. C7-T1: No significant disc disease. No significant spinal stenosis. Soft tissues: Unremarkable. IMPRESSION: Degenerative changes, most marked at C5/6 and C6/7. Please see details above. Electronically signed by: Andrew Shoemaker On 05/08/2021 12:21:40 PM
== END ==
LOC: M RAD 09:34
PROVIDERS: ATTEND Nurse Practitioner Family
DX: M48.02 Spinal stenosis, cervical region (principal)

== ENCOUNTER → 2021-08-23 | Outpatient (CLI) | payer BC, OTHER ==
[~2021-08-23] MED LIST changes: +ISOVUE-300 61% 50ML VIAL As Ordered ONE; +LIDOCAINE 1% MDV 20ML VIAL As Ordered ONE; +OMEP-173; -OMEP-218; +methylPREDNISolone SUSP 40MG/ML 1ML VIAL (DEPO MEDROL) As Ordered ONE
== END ==
LOC: M RADPRO 13:38
PROVIDERS: ATTEND Physician Assistant Surgical
DX: M16.12 Unilateral primary osteoarthritis, left hip (principal)
CPT/HCPCS: 20610; 77002; J1030; Q9967

== ENCOUNTER → 2021-11-02 | Outpatient (REF) | payer OTHER ==
[~2021-11-02] MED LIST changes: -ISOVUE-300 61% 50ML VIAL As Ordered ONE; -LIDOCAINE 1% MDV 20ML VIAL As Ordered ONE; -methylPREDNISolone SUSP 40MG/ML 1ML VIAL (DEPO MEDROL) As Ordered ONE
[2021-11-02 16:19] LABS: BASO # 0.1 10^3/uL (0.0-0.2); BASO % 1.3 % (0.0-1.0); EOS # 0.2 10^3/uL (0.0-0.5); EOS % 3.1 % (0.0-3.0); HEMATOCRIT 44.4 % (36.0-47.0); HEMOGLOBIN 14.6 g/dl (12.0-15.5); LYMPH # 1.7 10^3/uL (1.5-5.0); LYMPH % 27.7 % (24.0-44.0); MEAN CORPUSCULAR HEMOGLOBIN 31.3 pg (27.0-33.0); MEAN CORPUSCULAR HGB CONC 32.9 g/dl (32.0-36.5); MEAN CORPUSCULAR VOLUME 95.3 fl (80.0-96.0); MONO # 0.6 10^3/uL (0.0-0.8); MONO % 9.2 % (2.0-8.0); NEUTROPHILS # 3.6 10^3/uL (1.5-8.5); NEUTROPHILS % 58.4 % (36.0-66.0); PLATELET COUNT, AUTOMATED 308 10^3/uL (150-450); RED BLOOD COUNT 4.66 10^6/uL (4.00-5.40); WHITE BLOOD COUNT 6.2 10^3/uL (4.0-10.0)
[2021-11-02 16:49] LABS: ERYTHROCYTE SEDIMENTATION RATE 13 mm/hr (0-30)
[2021-11-02 17:55] LABS: ALBUMIN 4.2 GM/DL (3.2-5.2); ALT/SGPT 25 U/L (12-78); BILIRUBIN,TOTAL 1.3 MG/DL (0.2-1.0); BLOOD UREA NITROGEN 16 MG/DL (7-18); C REACTIVE PROTEIN QUANTITATIV 0.43 MG/DL (0.00-0.30); CALCIUM LEVEL 9.7 MG/DL (8.5-10.1); CARBON DIOXIDE LEVEL 31 MEQ/L (21-32); CHLORIDE LEVEL 105 MEQ/L (98-107); CHOLESTEROL LEVEL 275 MG/DL (<200); CHOLESTEROL RISK RATIO 4.435 (<5); CREATININE FOR GFR 0.79 MG/DL (0.55-1.30); FREE T4 1.05 NG/DL (0.76-1.46); GLOMERULAR FILTRATION RATE > 60.0 (>51); GLUCOSE, FASTING 88 MG/DL (70-100); HDL CHOLESTEROL 62 MG/DL (>40); IRON (FE) 118 UG/DL (50-170); LDL CHOLESTEROL 180 MG/DL (<100); NON-HDL-C 213 MG/DL; POTASSIUM SERUM 4.3 MEQ/L (3.5-5.1); RHEUMATOID FACTOR QUANT < 10.0 IU/ML (<15.0); SODIUM LEVEL 139 MEQ/L (136-145); THYROID STIMULATING HORMONE 0.716 uIU/ML (0.358-3.740); TOTAL IRON BINDING CAPACITY 319 UG/DL (250-450); TOTAL PROTEIN 7.8 GM/DL (6.4-8.2); TRIGLYCERIDES LEVEL 163 MG/DL (<150)
[2021-11-02 17:57] LABS: TOTAL 25(OH) VITAMIN D 49.1 NG/ML (30.0-100.0)
[2021-11-04 21:10] LABS: ANA (HEP2) Negative (.)
== END ==
LOC: M SFHCCLAY 10:24
PROVIDERS: ATTEND Nurse Practitioner Family
DX: E03.9 Hypothyroidism, unspecified (principal); Z98.84 Bariatric surgery status; E78.2 Mixed hyperlipidemia; M25.50 Pain in unspecified joint

== ENCOUNTER → 2022-02-26 | Outpatient (REF) | LOC: M LABSMTC 10:42 | PROVIDERS: ATTEND Family Medicine | DX: Z20.822 Contact with and (suspected) exposure to COVID-19 (principal) ==

== ENCOUNTER → 2022-05-25 | Outpatient (CLI) | payer BC, OTHER | LOC: M WHC 07:05 | PROVIDERS: ATTEND Obstetrics & Gynecology | DX: Z12.31 Encounter for screening mammogram for malignant neoplasm of breast (principal) ==

== ENCOUNTER → 2022-07-10 | Outpatient (REF) ==
[2022-07-10 13:52] LABS: RSV AMPLIFICATION NEGATIVE (NEGATIVE)
== END ==
LOC: M LABSMTC 11:18
PROVIDERS: ATTEND Family Medicine
DX: Z20.828 Contact with and (suspected) exposure to other viral communicable diseases (principal)

== ENCOUNTER → 2023-01-02 | Outpatient (REF) | payer OTHER ==
[2023-01-02 12:46] LABS: BASO # 0.1 10^3/uL (0.0-0.2); BASO % 1.4 % (0.0-1.0); EOS # 0.2 10^3/uL (0.0-0.5); EOS % 3.4 % (0.0-3.0); HEMOGLOBIN 13.6 g/dl (12.0-15.5); LYMPH # 1.7 10^3/uL (1.5-5.0); LYMPH % 28.6 % (24.0-44.0); MEAN CORPUSCULAR HEMOGLOBIN 31.6 pg (27.0-33.0); MEAN CORPUSCULAR HGB CONC 32.4 g/dl (32.0-36.5); MEAN CORPUSCULAR VOLUME 97.7 fl (80.0-96.0); MONO # 0.4 10^3/uL (0.0-0.8); MONO % 7.4 % (2.0-8.0); NEUTROPHILS # 3.4 10^3/uL (1.5-8.5); NEUTROPHILS % 58.9 % (36.0-66.0); PLATELET COUNT, AUTOMATED 268 10^3/uL (150-450); WHITE BLOOD COUNT 5.8 10^3/uL (4.0-10.0)
[2023-01-02 13:21] LABS: ALBUMIN 3.7 G/DL (3.2-5.2); ALKALINE PHOSPHATASE 79 U/L (46-116); ALT/SGPT 25 U/L (7.0-40); AST/SGOT 21 U/L (<34); BLOOD UREA NITROGEN 12 MG/DL (9-23); CARBON DIOXIDE LEVEL 28 MMOL/L (20-31); CHLORIDE LEVEL 106 MMOL/L (98-107); CHOLESTEROL LEVEL 227 MG/DL (<200); CHOLESTEROL RISK RATIO 3.91 (<5); CREATININE FOR GFR 0.74 MG/DL (0.55-1.30); GLOMERULAR FILTRATION RATE > 60.0 (>51); GLUCOSE, FASTING 86 MG/DL (60-100); LDL CHOLESTEROL 142.2 MG/DL (<100); POTASSIUM SERUM 4.6 MMOL/L (3.5-5.1); SODIUM LEVEL 139 MMOL/L (136-145); TOTAL PROTEIN 6.6 G/DL (5.7-8.2); TRIGLYCERIDES LEVEL 134 MG/DL (<150)
[2023-01-02 13:24] LABS: THYROID STIMULATING HORMONE 2.951 uIU/ML (0.55-4.78)
[2023-01-02 13:25] LABS: FREE T4 1.05 NG/DL (0.89-1.76)
[2023-01-02 13:26] LABS: HEMOGLOBIN A1c 5.4 % (4.0-6.0)
== END ==
LOC: M SFHCCLAY 07:49
PROVIDERS: ATTEND Nurse Practitioner Family
DX: E03.9 Hypothyroidism, unspecified (principal); E78.2 Mixed hyperlipidemia; M25.50 Pain in unspecified joint; Z98.84 Bariatric surgery status; Z13.1 Encounter for screening for diabetes mellitus

== ENCOUNTER → 2023-02-23 | Outpatient (CLI) | payer BC, OTHER ==
[~2023-02-23] MED LIST changes: +ACET650T61 PO; -DULO1CAP5; +DULO1CAP5 PO; -OMEP-173; +OMEP-173 PO; -PREG100C; +PREG100C PO; +VITA100093 PO; +VITMTA PO
== END ==
LOC: M PLAIMG 15:30
PROVIDERS: ATTEND Physician Assistant Surgical
DX: M16.12 Unilateral primary osteoarthritis, left hip (principal)

== ENCOUNTER 2023-03-05 10:10 | Day surgery (SDC) | payer BC, OTHER ==
[~2023-03-05] VITALS: Ht 157.5 cm; Wt 92.8 kg
[~2023-03-05 10:10] MED LIST changes: +NS 1,000 ML IV ONE
[2023-03-05] MEDS ORDERED: propofoL 200 MG/20 ML VIAL As Ordered ONE ×2 (10:38→12:01)
[2023-03-05] MEDS ORDERED: LIDOCAINE 2% 100MG/5ML SDV (FOR ANES.) As Ordered ONE (10:38)
[2023-03-05 12:16] VITALS: TEMP 97.1
[2023-03-05 12:51] VITALS: BP 119/75; O2SAT 97
== END 2023-03-05 12:54 | disposition home or self-care (01) ==
LOC: M OPP 10:10
PROVIDERS: ATTEND Internal Medicine Gastroenterology
DX: Z12.11 Encounter for screening for malignant neoplasm of colon (principal); Z86.010 Personal history of colon polyps; D12.2 Benign neoplasm of ascending colon; K63.5 Polyp of colon; K64.4 Residual hemorrhoidal skin tags; K64.8 Other hemorrhoids; K57.30 Diverticulosis of large intestine without perforation or abscess without bleeding; Z79.890 Hormone replacement therapy; Z79.899 Other long term (current) drug therapy

== ENCOUNTER → 2023-03-27 | Outpatient (REF) ==
[~2023-03-27] MED LIST changes: -NS 1,000 ML IV ONE
[2023-03-27 10:06] LABS: RSV AMPLIFICATION NEGATIVE (NEGATIVE)
== END ==
LOC: M EMP 08:19
PROVIDERS: ATTEND Family Medicine
DX: Z11.52 Encounter for screening for COVID-19 (principal)

== ENCOUNTER → 2023-04-13 | Outpatient (REF) ==
[2023-04-13 10:54] LABS: RSV AMPLIFICATION NEGATIVE (NEGATIVE)
== END ==
LOC: M EMP 09:56
PROVIDERS: ATTEND Family Medicine
DX: Z11.52 Encounter for screening for COVID-19 (principal)

== ENCOUNTER → 2023-06-18 | Outpatient (CLI) | payer BC, OTHER ==
[~2023-06-18] MED LIST changes: -PREG100C PO; +PREG100C2 PO
== END ==
LOC: M CLY 11:45
PROVIDERS: ATTEND Nurse Practitioner Family
DX: R09.89 Other specified symptoms and signs involving the circulatory and respiratory systems (principal)

== ENCOUNTER 2023-07-03 11:32 | Emergency (ER) | payer BC, OTHER ==
[~2023-07-03] VITALS: Ht 157.5 cm; Wt 95.5 kg
[2023-07-03] MEDS ORDERED: LEVO112T2 (11:48)
[2023-07-03] MEDS ORDERED: TRIA1CR80 (11:48)
[2023-07-03 13:14] LABS: BASO % 0.5 % (0.0-1.0); EOS # 0.1 10^3/uL (0.0-0.5); EOS % 1.6 % (0.0-3.0); HEMOGLOBIN 13.6 g/dl (12.0-15.5); LYMPH # 1.2 10^3/uL (1.5-5.0); LYMPH % 14.1 % (24.0-44.0); MEAN CORPUSCULAR HEMOGLOBIN 31.8 pg (27.0-33.0); MEAN CORPUSCULAR HGB CONC 33.2 g/dl (32.0-36.5); MEAN CORPUSCULAR VOLUME 95.8 fl (80.0-96.0); MONO # 0.5 10^3/uL (0.0-0.8); MONO % 6.5 % (2.0-8.0); NEUTROPHILS # 6.3 10^3/uL (1.5-8.5); NEUTROPHILS % 76.7 % (36.0-66.0); PLATELET COUNT, AUTOMATED 303 10^3/uL (150-450); RED BLOOD COUNT 4.28 10^6/uL (4.00-5.40); WHITE BLOOD COUNT 8.2 10^3/uL (4.0-10.0)
[2023-07-03 13:33] LABS: LIPASE 58 U/L (12-53)
[2023-07-03 13:35] LABS: ALKALINE PHOSPHATASE 89 U/L (46-116); ALT/SGPT 19 U/L (7.0-40); AST/SGOT 21 U/L (<34); BILIRUBIN,DIRECT 0.2 MG/DL (<0.4); BLOOD UREA NITROGEN 13 MG/DL (9-23); CARBON DIOXIDE LEVEL 25 MMOL/L (20-31); CHLORIDE LEVEL 102 MMOL/L (98-107); GLOMERULAR FILTRATION RATE > 60.0 (>51); GLUCOSE, FASTING 96 MG/DL (60-100); MAGNESIUM LEVEL 2.1 MG/DL (1.8-2.4); POTASSIUM SERUM 4.2 MMOL/L (3.5-5.1); SODIUM LEVEL 137 MMOL/L (136-145); TOTAL PROTEIN 7.2 G/DL (5.7-8.2)
[2023-07-03 13:36] LABS: FREE T3 2.9 PG/ML (2.3-4.2)
[2023-07-03 13:37] LABS: THYROID STIMULATING HORMONE 1.436 uIU/ML (0.55-4.78)
[2023-07-03 16:51] VITALS: BP 109/60; TEMP 97.6; O2SAT 94
== END 2023-07-03 16:55 | disposition home or self-care (01) ==
LOC: M ED 11:32 → EDBD 11:32 → M ED 16:55
DX: R42 Dizziness and giddiness (principal); R00.1 Bradycardia, unspecified; E03.9 Hypothyroidism, unspecified; E78.5 Hyperlipidemia, unspecified; K21.9 Gastro-esophageal reflux disease without esophagitis; M54.50 Low back pain, unspecified; Z98.84 Bariatric surgery status; Z87.891 Personal history of nicotine dependence; Z88.1 Allergy status to other antibiotic agents; Z80.51 Family history of malignant neoplasm of kidney; Z79.899 Other long term (current) drug therapy

== ENCOUNTER → 2023-10-01 | Outpatient (REF) ==
[~2023-10-01] MED LIST changes: +LEVO112T2; +TRIA1CR80
== END ==
LOC: M EMP 09:02
PROVIDERS: ATTEND Family Medicine
DX: Z53.9 Procedure and treatment not carried out, unspecified reason (principal)

== ENCOUNTER → 2023-11-09 | Outpatient (CLI) | payer BC ==
[~2023-11-09] MED LIST changes: +ISOVUE-300 61% 100ML VIAL As Ordered ONE; +LIDOCAINE 1% MDV 20ML VIAL As Ordered ONE; +methylPREDNISolone SUSP 40MG/ML 1ML VIAL (DEPO MEDROL) As Ordered ONE
== END ==
LOC: M RAD 14:34
PROVIDERS: ATTEND Orthopaedic Surgery
DX: M16.12 Unilateral primary osteoarthritis, left hip (principal)
CPT/HCPCS: 20610; 77002; J1030; Q9967

== ENCOUNTER → 2024-01-31 | Outpatient (REF) | payer BC ==
[~2024-01-31] MED LIST changes: -ISOVUE-300 61% 100ML VIAL As Ordered ONE; -LIDOCAINE 1% MDV 20ML VIAL As Ordered ONE; -methylPREDNISolone SUSP 40MG/ML 1ML VIAL (DEPO MEDROL) As Ordered ONE
[2024-01-31 18:45] LABS: BASO # 0.1 10^3/uL (0.0-0.2); BASO % 1.5 % (0.0-1.0); EOS # 0.2 10^3/uL (0.0-0.5); EOS % 2.9 % (0.0-3.0); HEMATOCRIT 40.8 % (36.0-47.0); HEMOGLOBIN 13.6 g/dl (12.0-15.5); LYMPH # 1.7 10^3/uL (1.5-5.0); MEAN CORPUSCULAR HEMOGLOBIN 32.2 pg (27.0-33.0); MEAN CORPUSCULAR HGB CONC 33.3 g/dl (32.0-36.5); MEAN CORPUSCULAR VOLUME 96.7 fl (80.0-96.0); MONO # 0.7 10^3/uL (0.0-0.8); MONO % 10.6 % (2.0-8.0); NEUTROPHILS # 3.5 10^3/uL (1.5-8.5); NEUTROPHILS % 56.8 % (36.0-66.0); PLATELET COUNT, AUTOMATED 289 10^3/uL (150-450); RED BLOOD COUNT 4.22 10^6/uL (4.00-5.40); WHITE BLOOD COUNT 6.2 10^3/uL (4.0-10.0)
[2024-01-31 19:00] LABS: HEMOGLOBIN A1c 5.4 % (4.0-6.0)
[2024-01-31 19:22] LABS: FREE T4 1.01 NG/DL (0.89-1.76); THYROID STIMULATING HORMONE 1.742 uIU/ML (0.55-4.78)
[2024-01-31 19:25] LABS: TOTAL 25(OH) VITAMIN D 44.3 NG/ML (20.0-100.0)
[2024-01-31 19:26] LABS: ALBUMIN 3.8 G/DL (3.2-5.2); ALT/SGPT 26 U/L (7.0-40); BLOOD UREA NITROGEN 16 MG/DL (9-23); CALCIUM LEVEL 9.3 MG/DL (8.5-10.1); CARBON DIOXIDE LEVEL 27 MMOL/L (20-31); CHLORIDE LEVEL 107 MMOL/L (98-107); GLUCOSE, FASTING 92 MG/DL (60-100); MAGNESIUM LEVEL 2.1 MG/DL (1.8-2.4); POTASSIUM SERUM 4.4 MMOL/L (3.5-5.1); SODIUM LEVEL 141 MMOL/L (136-145); TRIGLYCERIDES LEVEL 142 MG/DL (<150); VITAMIN B12 LEVEL > 2000 PG/ML (211-911)
[2024-01-31 19:28] LABS: ALKALINE PHOSPHATASE 96 U/L (46-116); AST/SGOT 14 U/L (<34); BILIRUBIN,TOTAL 0.8 MG/DL (0.3-1.2); CHOLESTEROL LEVEL 207 MG/DL (<200); CHOLESTEROL RISK RATIO 3.97 (<5); CREATININE FOR GFR 0.69 MG/DL (0.55-1.30); GLOMERULAR FILTRATION RATE > 60.0 (>51); HDL CHOLESTEROL 52.1 MG/DL (>40); IRON (FE) 94 UG/DL (50-170); LDL CHOLESTEROL 126.5 MG/DL (<100); NON-HDL-C 154.9 MG/DL; PERCENT SATURATION 30.1 % (13.2-45.0); TOTAL IRON BINDING CAPACITY 312 UG/DL (250-425); TOTAL PROTEIN 7.1 G/DL (5.7-8.2)
== END ==
LOC: M SFHCCLAY 13:14
PROVIDERS: ATTEND Nurse Practitioner Family
DX: Z00.00 Encounter for general adult medical examination without abnormal findings (principal); E03.9 Hypothyroidism, unspecified; E78.2 Mixed hyperlipidemia; M25.50 Pain in unspecified joint; Z98.84 Bariatric surgery status; Z13.1 Encounter for screening for diabetes mellitus; K29.70 Gastritis, unspecified, without bleeding

== ENCOUNTER → 2024-05-30 | Outpatient (CLI) | payer BC ==
[~2024-05-30] MED LIST changes: +ISOVUE-300 61% 100ML VIAL As Ordered ONE; +LIDOCAINE 1% MDV 20ML VIAL As Ordered ONE; +methylPREDNISolone SUSP 40MG/ML 1ML VIAL (DEPO MEDROL) As Ordered ONE
== END ==
LOC: M RAD 14:46
PROVIDERS: ATTEND Orthopaedic Surgery
DX: M16.12 Unilateral primary osteoarthritis, left hip (principal)
CPT/HCPCS: 20610; 77002; J1010; Q9967

== ENCOUNTER → 2024-08-22 | Outpatient (REF) ==
[~2024-08-22] MED LIST changes: -ISOVUE-300 61% 100ML VIAL As Ordered ONE; -LIDOCAINE 1% MDV 20ML VIAL As Ordered ONE; -methylPREDNISolone SUSP 40MG/ML 1ML VIAL (DEPO MEDROL) As Ordered ONE
== END ==
LOC: M EMP 09:27
PROVIDERS: ATTEND Family Medicine
DX: Z11.52 Encounter for screening for COVID-19 (principal)

== ENCOUNTER → 2025-08-07 | Outpatient (CLI) | payer BC ==
[~2025-08-07] MED LIST changes: +ISOVUE-300 61% 100 ML VIAL As Ordered ONE; +LIDOCAINE 1% MDV 20 ML VIAL As Ordered ONE; +TRIAMCINOLONE ACETONIDE SUSP 40MG/ML 1ML VIAL As Ordered ONE
== END ==
LOC: M RAD 14:38
PROVIDERS: ATTEND Physician Assistant Surgical
DX: M16.11 Unilateral primary osteoarthritis, right hip (principal)
CPT/HCPCS: 20610; 77002; J3301; Q9967